=== PATIENT | male | born 1985 ===

== ENCOUNTER 2021-09-24 17:40 | Emergency (ER) | payer SELFPAY ==
[2021-09-24 18:12] VITALS: BP 151/99; PULSE 106; RESP 18; TEMP 36.9; O2SAT 96
--- NOTE | 2021-09-24 21:17 | PC.NURSE ---
First call with no answer at [id number]
== END 2021-09-24 21:30 | disposition left against medical advice (07) ==
LOC: ANHED 09-25 01:23
DX: S61.202A Unspecified open wound of right middle finger without damage to nail, initial encounter (principal)
CPT/HCPCS: 99199